=== PATIENT | male | born 1995 | race Caucasian/White ===

== ENCOUNTER 2021-09-22 11:17 | Emergency (ER) | payer MEDICAID, SELFPAY ==
[2021-09-22 11:28] VITALS: BP 140/83; PULSE 100; RESP 19; TEMP 36.6; O2SAT 99; BMI 23.8
--- NOTE | 2021-09-22 13:03 | ED.URI ---
HPI - URI/Sore Throat General Chief Complaint: Upper Respiratory Symptoms Stated Complaint: fever body aches chills COVID exposed Time Seen by Provider: 09/22/21 12:12 Source: patient Mode of arrival: ambulatory Limitations: no limitations History of Present Illness HPI Narrative: 26-year-old male lives with his brother who states he has to go over the test of COVID he states he has had some body aches and fever. Patient denies falls chest pain nausea vomiting or diarrhea. MD elicited complaint: nasal congestion and other (headache body aches) Related Data Allergies Allergy/AdvReac Type Severity Reaction Status Date / Time No Known Allergies Allergy Verified 09/22/21 12:13 Review of Systems Review of Systems: Review of systems: General: Patient denies any fever chills recent illness or falls Musculoskeletal: Body achesDenies back pain or other injuries HEENT: denies headache, runny nose, ear pain Respiratory: denies shortness of breath, cough Cardiovascular: no chest pain or palpitations : denies dysuria, frequency Abdomen: no nausea vomiting denies abdominal pain Extremities: no swelling, no pain Skin: no diaphoresis Yes all other systems are reviewed and are negative Physical Exam Vital Signs: Vital Signs: Last Vital Signs Temp 98 F 09/22/21 11:28 Pulse 100 09/22/21 11:28 Resp 19 09/22/21 11:28 BP 140/83 H 09/22/21 11:28 Pulse Ox 99 09/22/21 11:28 BMI result Body Mass Index 23.8 General: Well-appearing well-nourished in no signs of distress HEENT: Normocephalic atraumatic Neck: No signs of JVD, no masses no tenderness or lymphadenopathy Cardiovascular: Regular rate and rhythm Respiratory: Clear to auscultation bilaterally Abdomen: Soft nontender no masses rectal exam performed guiac negative ethanol quality leader confirmed. Extremities: Normal pedal pulses no signs of edema Skin: Dry warm no rashes Back: No tenderness full ROM Discharge Plan Discharge Clinical Impression: COVID-19 Patient Disposition: Home, Self-Care Instructions: COVID-19 (Coronavirus Disease 2019) (ED) Additional Instructions: please call follow-up with her doctor if you have any other concerns please do not hesitate to come back to emergency department. Stand Alone Forms: Work/School Release
[2021-09-22 13:16] LABS: COVID-19 Test Negative (Negative)
[2021-09-22] MEDS: Acetaminophen 325 MG TABLET 650 MG PO (13:41)
== END 2021-09-22 14:07 | disposition home or self-care (01) ==
LOC: HO.ED 13:28
PROVIDERS: Physician Assistant Medical; Emergency Provider Student in an Organized Health Care Education/Training Program
DX: U07.1 COVID-19 (principal); R51.9 Headache, unspecified
CPT/HCPCS: 87635; 99283; 99284

== ENCOUNTER 2021-10-22 08:52 | Outpatient (REF) | payer OTHER, SELFPAY ==
[2021-10-22 09:17] LABS: MANUAL DIFF FLAG NO
[2021-10-22 10:15] LABS: Basophils Percent Auto 0.4 % (0-2); Eosinophils Absolute Auto 0.1 X10*3/uL (0.0-0.4); Eosinophils Percent Auto 1.4 % (0-4); Hematocrit 44.1 % (42.0-52.0); Hemoglobin 14.8 g/dl (14.0-18.0); Lymphocytes Absolute Auto 1.7 X10*3/uL (1.2-4.9); Lymphocytes Percent Auto 32.4 % (20-40); Mean Corpuscular HGB Conc 33.6 g/dl (31.0-36.0); Mean Corpuscular Hemoglobin 28.6 pg (27.0-33.0); Mean Corpuscular Volume 85.3 fL (80.0-98.0); Mean Platelet Volume 12.7 fL (9.4-12.4); Monocytes Absolute Auto 0.6 X10*3/uL (0.1-1.2); Monocytes Percent Auto 12.5 % (2-11); Neutrophils Absolute Auto 2.7 x10*3/uL (2.0-8.3); Neutrophils Percent Auto 53.3 % (45-73); Platelet Count 206 X10*3/uL (160-400); Red Blood Count 5.17 X10*6/uL (4.60-5.80); White Blood Count 5.1 X10*3/uL (4.8-10.8)
[2021-10-22 10:34] LABS: Alanine Aminotransferase 24 U/L (0-40); Albumin Level 4.5 g/dL (3.5-5.0); Alkaline Phosphatase 61 U/L (39-117); Anion Gap 13 (12-20); Aspartate Amino Transferase 18 U/L (5-37); Bilirubin Total 0.6 mg/dL (0.0-1.0); Blood Urea Nitrogen 16 mg/dL (9-16); Calcium 9.7 mg/dL (8.4-10.2); Carbon Dioxide 26 mmol/L (22-29); Chloride 107 mmol/L (96-108); Cholesterol 177 mg/dL; Estimated Glomerular Filt Rate > 60; Glucose Fasting 101 mg/dL (60-99); HDL Cholesterol 44 mg/dL; LDL Cholesterol Calculated 119 mg/dl; Potassium 4.5 mmol/L (3.3-5.1); Sodium 141 mmol/L (135-145); Total Protein 7.4 g/dL (6.5-8.0); Triglycerides 70 mg/dL
[2021-10-22 12:31] LABS: CT PCR NOT DETECTED (Not Detect.); NG PCR NOT DETECTED (Not Detect.)
[2021-10-24 08:24] LABS: ~Hepatitis C Antibody Nonreactive (Nonreactive)
[2021-10-24 08:27] LABS: Syphilis Screen Nonreactive (Nonreactive)
[2021-10-24 08:51] LABS: HIV AB/AG Nonreactive (Nonreactive); HIV Num 1 0.08 S/CO (0.00-0.99)
== END 2021-10-22 08:53 | disposition home or self-care (01) ==
LOC: HO.LAB 08:52
PROVIDERS: PCP Internal Medicine; Visit Provider Nurse Practitioner Family
DX: Z11.3 Encounter for screening for infections with a predominantly sexual mode of transmission (principal); Z11.4 Encounter for screening for human immunodeficiency virus [HIV]; Z11.59 Encounter for screening for other viral diseases; Z13.220 Encounter for screening for lipoid disorders; Z11.8 Encounter for screening for other infectious and parasitic diseases; Z76.89 Persons encountering health services in other specified circumstances
CPT/HCPCS: 80053; 80061; 85025; 86780; 86803; 87389; 87491; 87591

== ENCOUNTER 2022-05-17 07:58 | Outpatient (REF) | payer OTHER, SELFPAY ==
[2022-05-17 08:39] LABS: COVID-19 Test Negative (Negative); IDNOW Serial# 9DB6401D
== END 2022-05-17 07:59 | disposition home or self-care (01) ==
LOC: HO.LAB 07:58
PROVIDERS: Visit Provider Internal Medicine
DX: Z20.822 Contact with and (suspected) exposure to COVID-19 (principal)
CPT/HCPCS: 87635; C9803

== ENCOUNTER 2023-02-22 08:49 | Emergency (ER) | payer OTHER, SELFPAY ==
[2023-02-22 09:01] VITALS: BP 124/80; PULSE 77; RESP 16; TEMP 36.8; O2SAT 100; BMI 20.2
--- NOTE | 2023-02-22 09:45 | ED_ITS ---
HPI - Eye Problem General Chief complaint: Eye Problems Stated complaint: L eye pain Time Seen by Provider: 02/22/23 09:22 Source: patient and RN notes reviewed Mode of arrival: ambulatory Limitations: no limitations History of Present Illness HPI Narrative: This is a 27-year-old male, with no significant past medical history, who presents the emergency department for evaluation of left eye redness and irritation since yesterday. 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 He is unsure if anything got into his eye. He reports a grainy sensation is eye since. He admits to having some photophobia in the left eye. He denies any visual changes or blurred vision. Denies any fevers or chills. Denies itchiness or drainage from his eye. No other complaints or concerns at this time. MD chief complaint: eye pain, eye redness and eye injury Onset (ago): day(s) Onset description: gradual Duration: constant Location: left eye Eye Symptoms: redness, foreign body sensation and photophobia Place: work Mechanism: direct trauma and occurred while hammering/grinding ([place]) Associated symptoms: none Treatments Prior to Arrival: none Related Data Previous Rx's Medication Instructions Recorded sulfacetamide sodium 10 % eye drops 1 drp ophthalmic-Left Q3H 7 days 02/22/23 #15 mL Allergies Allergy/AdvReac Type Severity Reaction Status Date / Time No Known Allergies Allergy Verified 02/22/23 09:01 Review of Systems Review of Systems: Constitutional: No Weight loss, No Fever, No Chills ENT/Mouth: No Ear Pain, No Nasal Congestion, No Sinus Pain, No Hoarseness, No sore throat, No Rhinorrhea, No Swallowing Difficulty Cardiovascular: No Chest Pain, No SOB Respiratory: No Cough, No Sputum, No Wheezing Gastrointestinal: No Nausea, No Vomiting, No Diarrhea, No Constipation, No Abdominal pain Genitourinary: No Dysuria, No Urinary Frequency, No Hematuria, No Urinary Incontinence/retention, No Urgency, No Flank Pain Musculoskeletal: No joint pain, No Myalgias, No Joint Swelling Skin: No Skin Lesions, No rash Neuro: No Weakness, No Numbness, No Paresthesias PMFSH Family History Family History Mother No problems noted. Father No problems noted. Brother No problems noted. Brother No problems noted. Social History Social History Housing: Apartment Patient Tobacco Use Status: Never used Tobacco e-Cigarette/Vaping Use: Never Used Second Hand Smoke Exposure: No Advance Directives: No Current occupational status: employed Physical Exam Vital Signs: Vital Signs: Last Vital Signs Temp 98.2 F 02/22/23 09:01 Pulse 77 02/22/23 09:01 Resp 16 02/22/23 09:01 BP 124/80 02/22/23 09:01 Pulse Ox 100 02/22/23 09:01 O2 Del Method Room Air 02/22/23 09:01 BMI result Body Mass Index 20.2 Const: Other: General: Awake, alert, and oriented X3. No acute distress. HEENT: Normal inspection, left conjunctiva is injected, no obvious foreign body, no drainage or tearing. Luna, EOMI without any pain. + photophobia. Diffuse fluroscein uptake in left eye. No foreign bodies, ulcerations or lacerations noted. CVS: Normal heart rate and rhythm. Pulses normal. Respiratory: No respiratory distress Skin: Warm, dry, no rashes noted to exposed skin. Normal skin color. Normal skin turgor. Extremities: Normal inspection Neuro: Oriented X 3. No motor deficit. No sensory deficit. Course Reevaluation(s) Reevaluation #1: Fluorescein stain revealing diffuse fluorescein uptake throughout the whole eye, visual acuity 20/40, right 20/25, both 20/20. Pressures normal bilaterally, 10mmHg the right, 15mmHg in the left. Will treat as eye iritis/eye irritation. Will treat for underlying infection with left 10 antibiotic eyedrops given return precautions. Also given Dr. Bae's contact information should 2 hours. Patient understands and agrees with plan. Stable for discharge Time: 10:22 Medications Administered Discontinued Medications Generic Name Dose Route Start Last Admin Trade Name Freq PRN Reason Stop Dose Admin Fluorescein Sodium 1 strip 02/22/23 09:45 02/22/23 09:50 Fluorescein Sodium Strip EYE-LEFT 02/22/23 09:46 1 strip ONCE ONE Administration Tetracaine HCl 1 drop 02/22/23 09:45 02/22/23 09:50 Tetracaine Hcl/Pf 0.5% Oph Jessica 4 Ml Drops EYE-LEFT 02/22/23 09:46 1 drop ONCE ONE Administration Medical Decision Making Medical Decision Making MDM Narrative: 27-year-old male presenting to the emergency department for evaluation of left eye redness and irritation since yesterday. Patient works as a arc welder apprentice and accidentally hit himself in the left eye with a tool, and is unsure if he had gotten any dirt into his left eye that time. He denies any itchiness, visual changes, discharge, or drainage. Upon arrival all vital signs are within normal limits. Plan: Visual acuity test, fluorescein stain, eye pressures Differential Diagnosis Differential Diagnoses: The differential diagnosis associated with the presentation includes Conjunctivitis, corneal abrasion, iritis, foreign body Discharge Plan Discharge Clinical Impression: Iritis, Irritation of left eye Patient Disposition: Home, Self-Care Instructions: Iritis (ED) Additional Instructions: Your eye pressures in both of your eyes were normal today. There were not any foreign bodies or abrasions to your left eye. Please use antibiotic eye drops in your left eye as directed. Complete the full course. Please use sunglasses when out in the sun for eye protection. If your symptoms worsen, including worsening eye pain or visual changes please return to the ER for further evaluation. If your symptoms do not improve significantly over the next 48-72 hours please follow up with the referred eye physician. Call to make an appointment. Prescriptions: New sulfacetamide sodium 10 % drops 1 drp ophthalmic-Left Q3H 7 Days Qty: 15 0RF Referrals: Marcus Givens [Physician] - Stand Alone Forms: Work/School Release Interventions: ED Discharge Assessment Last Done: 02/22/23 11:08 Discharge Date/Time: 02/22/23 11:09
[2023-02-22] MEDS: Tetracaine HCl/PF 0.5% Oph Sol 4 ML DROPS 1 DROP EYE-LEFT (09:50)
[2023-02-22] MEDS: Fluorescein Sodium STRIP 1 STRIP EYE-LEFT (09:50)
--- NOTE | 2023-02-22 09:50 | PC.NURSE ---
provider to administer medication ordered
== END 2023-02-22 11:09 | disposition home or self-care (01) ==
PROVIDERS: Emergency Provider Emergency Medicine
DX: Z04.2 Encounter for examination and observation following work accident (principal); H20.9 Unspecified iridocyclitis; H57.12 Ocular pain, left eye
CPT/HCPCS: 99282; 99283

== ENCOUNTER → 2023-02-27 14:27 | Outpatient (BNVA) | payer OTHER, SELFPAY | PROVIDERS: Visit Provider Internal Medicine | DX: S01.111A Laceration without foreign body of right eyelid and periocular area, initial encounter (principal); W22.8XXA Striking against or struck by other objects, initial encounter; M54.2 Cervicalgia; Z23 Encounter for immunization | CPT/HCPCS: 12013; 72050; 90715; 99203 ==

== ENCOUNTER → 2023-03-01 09:39 | Outpatient (BNVA) | payer OTHER, SELFPAY | PROVIDERS: Visit Provider Internal Medicine | DX: S05.41XA Penetrating wound of orbit with or without foreign body, right eye, initial encounter (principal); W22.8XXA Striking against or struck by other objects, initial encounter; M54.2 Cervicalgia | CPT/HCPCS: 99213 ==

== ENCOUNTER → 2023-03-02 08:58 | Outpatient (BNVA) | payer OTHER, SELFPAY | PROVIDERS: Visit Provider Internal Medicine | DX: S01.111A Laceration without foreign body of right eyelid and periocular area, initial encounter (principal); S16.1XXA Strain of muscle, fascia and tendon at neck level, initial encounter; W22.8XXA Striking against or struck by other objects, initial encounter | CPT/HCPCS: 99213 ==

== ENCOUNTER → 2023-03-05 10:56 | Outpatient (BNVA) | payer OTHER, SELFPAY | PROVIDERS: Visit Provider Internal Medicine | DX: S01.111A Laceration without foreign body of right eyelid and periocular area, initial encounter (principal); S16.1XXA Strain of muscle, fascia and tendon at neck level, initial encounter; W22.8XXA Striking against or struck by other objects, initial encounter | CPT/HCPCS: 99212; 99213 ==

== ENCOUNTER 2023-04-23 04:02 | Emergency (ER) | payer OTHER, SELFPAY ==
[2023-04-23 04:08] VITALS: BP 149/84; PULSE 88; RESP 18; TEMP 36.9; O2SAT 100; BMI 20.5
[2023-04-23 05:28] VITALS: BP 142/93; PULSE 77; RESP 18; TEMP 37.2; O2SAT 100
--- NOTE | 2023-04-23 05:35 | PC.NURSE ---
patient stated that he came to the ER due to he was up at 1AM could not take the headache and sinus pressure no more patient stated he has been suffering with this since last Sunday patient stated he went out of town to [facility] and patient stated he came home after 5 days he started to get sick patient stated he took all medications over the counter nothing was working now he said the body is aching and he said the Covid test was negative patient stated he have no medical issues or allergies patient vitals are stable at this time patient will continue to be monitored for safety
[2023-04-23] MEDS: Acetaminophen 325 MG TABLET 975 MG PO (05:57)
[2023-04-23] MEDS: Ketorolac Tromethamine 15 MG/ML VIAL IM (05:58)
--- NOTE | 2023-04-23 06:11 | ED_ITS ---
HPI - URI/Sore Throat General Chief Complaint: Headache Stated Complaint: r sided head pressure Time Seen by Provider: 04/23/23 04:36 Source: patient Mode of arrival: ambulatory History of Present Illness HPI Narrative: 27-year-old male who presents with body aches chills and COVID like symptoms 2 weeks ago on but negative home test. States that on Sunday began with sinus pressure and pain with headache with right greater than left but denies any visual disturbances he has been using decongestants [id number]. Denies any sore throat or ear pain. Related Data Previous Rx's Medication Instructions Recorded sulfacetamide sodium 10 % eye drops 1 drp ophthalmic-Left Q3H 7 days 02/22/23 #15 mL Allergies Allergy/AdvReac Type Severity Reaction Status Date / Time No Known Allergies Allergy Verified 02/22/23 09:01 Review of Systems Review of Systems: Pertinent positives and negatives as stated in HPI [facility] Past Medical History Source: nursing notes reviewed Family History Family History Mother No problems noted. Father No problems noted. Brother No problems noted. Brother No problems noted. Social History Social History Housing: Apartment Alcohol intake: never Patient Tobacco Use Status: Never used Tobacco Smoked in Last 30 Days: No e-Cigarette/Vaping Use: Never Used Second Hand Smoke Exposure: No Use of substances other than those prescribed or required for medical reasons: No Advance Directives: No Advance Directives Information Provided: No Current occupational status: employed Physical Exam Vital Signs: Vital Signs: Last Vital Signs Temp 98.9 F 04/23/23 05:28 Pulse 77 04/23/23 05:28 Resp 18 04/23/23 05:28 BP 142/93 H 04/23/23 05:28 Pulse Ox 100 04/23/23 05:28 O2 Del Method Room Air 04/23/23 05:28 BMI result Body Mass Index 20.5 VITAL SIGNS: Reviewed. GENERAL: Well developed, well nourished, in no acute distress. HEAD: Normocephalic/atraumatic, right maxillary tenderness on palpation EYES: PERRLA, EOMI EARS: Ext canals without abnormality, TMs non-bulging and non-erythematous NOSE: Nares patent bilateral, but bilateral boggy turbinates noted OROPHARYNX: no oral lesions noted, posterior pharynx clear and non-erythematous without noted tonsillar enlargement/erythema/exudates NECK: Supple, no adenopathy LUNGS: Normal breath sounds. No adventitious sounds or accessory muscle use. SpO2<100> CARDIOVASCULAR: Regular rate and rhythm without noted murmurs ABDOMEN: Soft, non-tender, non-distended with bowel sounds. MUSCULOSKELETAL: No tenderness, deformities, or effusions noted on gross inspection. EXTREMITIES: No cyanosis, clubbing or edema. SKIN: Inspection of the skin reveals no rashes NEUROLOGIC: Alert and oriented x 4. Strength and sensation to light touch were grossly intact x 4. Medications Administered Discontinued Medications Generic Name Dose Route Start Last Admin Trade Name Freq PRN Reason Stop Dose Admin Acetaminophen 975 mg 04/23/23 05:47 04/23/23 05:57 Acetaminophen 325 Mg Tablet PO 04/23/23 05:48 975 mg ONCE ONE Administration Ketorolac Tromethamine 15 mg 04/23/23 05:47 04/23/23 05:58 Ketorolac Tromethamine 15 Mg/Ml Vial IM 04/23/23 05:48 15 mg ONCE ONE Administration Medical Decision Making Medical Decision Making MDM Narrative: 27-year-old male with history and clinical presentation of viral sinusitis likely compounded by a recent flight. There is no purulence drainage to suggest bacterial infection, patient is afebrile here and the posterior pharynx and ears are clear. He was instructed on using Tylenol/ibuprofen as well as fluticasone for additional symptom relief and encouraged that if symptoms should continue past 5 days or he develops purulence drainage that he can return to the emergency room. Differential Diagnosis Differential Diagnoses: The differential diagnosis associated with the presentation includes Please see the discussion above Discharge Plan Discharge Clinical Impression: Upper respiratory infection, viral, Sinusitis Patient Disposition: Home, Self-Care Instructions: Upper Respiratory Infection (ED), Rhinosinusitis (ED) Additional Instructions: 1. Tylenol 1000 mg, por v?a oral, cada 6 horas seg?n sea necesario para controlar el dolor. No exceda los 4000 mg dentro de las 24 horas. 2. Ibuprofeno 400 mg, por v?a oral con leche o comida, cada 6 horas seg?n sea necesario para controlar el dolor. Puede zo jennie medicamento con Tylenol para mejorar el alivio de los s?ntomas. 3. Recomiende Flonase (fluticasona) de venta ruben, t?hansen [place] se indica en el empaque exterior para reducir la inflamaci?n de las fosas nasales. Regrese a la lynn de emergencias si los s?ntomas empeoran. 1. Tylenol 1000 mg, orally, every 6 hours as needed for pain control. Do not exceed 4000 mg within 24 hours. 2. Ibuprofen 400 mg, orally with milk or food, every 6 hours as needed for pain control. You may take this medication with the Tylenol for improved symptom relief. 3. Recommend [id number] Flonase (fluticasone), take as directed on the outside packaging for reduced swelling of nasal passages. Return to the ER for any worsening symptoms. Prescriptions: No Action sulfacetamide sodium 10 % drops 1 drp ophthalmic-Left Q3H 7 Days Qty: 15 0RF Interventions: ED Discharge Assessment Last Done: 04/23/23 06:19 Discharge Date/Time: 04/23/23 06:23 Print Language: Ukrainian
== END 2023-04-23 06:23 | disposition home or self-care (01) ==
PROVIDERS: Emergency Provider Student in an Organized Health Care Education/Training Program
DX: J06.9 Acute upper respiratory infection, unspecified (principal); J32.9 Chronic sinusitis, unspecified
CPT/HCPCS: 96372; 99284; J1885